=== PATIENT | female | born 1950 | race Caucasian/White ===

== ENCOUNTER 2017-10-23 01:37 | Emergency (ER) | payer MEDICARE, OTHER ==
[2017-10-23] MEDS ORDERED: Ketorolac Tromethamine 30 MG/ML VIAL ONE (02:02)
[2017-10-23] MEDS ORDERED: Cyclobenzaprine 10 MG TAB ONE (02:02)
[2017-10-23] MEDS ORDERED: Ondansetron ODT 4 MG TAB ONE (02:02)
== END 2017-10-23 02:35 | disposition home or self-care (01) ==
LOC: MADERS 01:37
DX: S76.012A Strain of muscle, fascia and tendon of left hip, initial encounter (principal); E78.5 Hyperlipidemia, unspecified; F17.210 Nicotine dependence, cigarettes, uncomplicated; I10 Essential (primary) hypertension; J44.9 Chronic obstructive pulmonary disease, unspecified; X58.XXXA Exposure to other specified factors, initial encounter
CPT/HCPCS: 96372; J1885; Q0162

== ENCOUNTER 2017-10-25 08:31 | Emergency (ER) | payer MEDICARE, OTHER ==
[2017-10-25] MEDS ORDERED: Naproxen 500 MG TAB ONE (09:21)
[2017-10-25] MEDS ORDERED: Diazepam 5 MG TAB ONE (09:21)
== END 2017-10-25 09:25 | disposition home or self-care (01) ==
LOC: MADERS 08:31
DX: M54.42 Lumbago with sciatica, left side (principal); E78.5 Hyperlipidemia, unspecified; I10 Essential (primary) hypertension; J44.9 Chronic obstructive pulmonary disease, unspecified; F17.210 Nicotine dependence, cigarettes, uncomplicated
CPT/HCPCS: 99283

== ENCOUNTER 2019-01-25 10:37 | Outpatient (CLI) | payer MEDICARE, OTHER ==
--- NOTE | 2019-01-25 13:01 | RAD ---
TWO VIEW CHEST: HISTORY: Hypoxia. History of smoking. COMPARISON: 07/22/2013 FINDINGS: The lungs appear clear. Vascular markings are within the normal range. Heart size is normal. [place] structures are unremarkable. IMPRESSION: Chest is unremarkable and unchanged. POS: [facility]
== END 2019-01-25 10:38 | disposition home or self-care (01) ==
LOC: MADRAD 10:37
PROVIDERS: ATTEND Obstetrics & Gynecology
DX: Z72.0 Tobacco use (principal)
CPT/HCPCS: 71046

== ENCOUNTER 2019-12-02 16:43 | Emergency (ER) | payer MEDICARE, OTHER ==
[~2019-12-02 16:43] MED LIST: Sodium Chloride 0.9% 100 ML BAG ONE
[2019-12-02] MEDS ORDERED: Amoxicillin/Potassium Clav 875 MG TAB ONE (17:07)
[2019-12-02] MEDS ORDERED: methylPREDNISolone Sod Succ/PF 125 MG/2 ML VIAL ONE (17:08)
[2019-12-02 17:14] LABS: #Basophils 0.1 thou/uL (0.0-0.2); #Lymphocytes 0.7 thou/uL (1.20-3.40); #Monocytes 0.8 thou/uL (0.11-0.59); #Neutrophils 16.3 thou/uL (1.40-6.50); %Basophils 0.4 % (0.0-1.0); %Lymphocytes 3.8 % (21.0-51.0); %Monocytes 4.3 % (0.0-10.0); %Neutrophils 91.4 % (42.0-75.0); Hemoglobin 15.8 g/dL (12.0-16.0); Mean Corpuscular HGB CONC 29.6 g/dL (32.0-36.0); Mean Corpuscular Hemoglobin 28.9 pg (27.0-31.0); Mean Corpuscular Volume 97.7 fL (78.0-98.0); Mean Platelet Volume 7.6 fL (7.4-10.4); Platelet Count 445 thou/uL (130-400); Red Blood Cell (RBC) Count 5.45 mill/uL (4.20-5.40); White Blood Cell (WBC) Count 17.9 thou/uL (4.8-10.8)
--- NOTE | 2019-12-02 17:18 | RAD ---
Exam: Chest one view HISTORY:Dyspnea Comparison: 01/25/2019 FINDINGS: Cardiac silhouette:Upper normal cardiac silhouette Aorta: Atherosclerosis Pulmonary vessels: Normal Costophrenic angles: Clear LUNGS: No masses or consolidation. Hyperinflation with chronic interstitial changes. Pneumothorax: None Osseous abnormalities: None IMPRESSION: No acute cardiopulmonary process. Atherosclerosis.
[2019-12-02] MEDS ORDERED: Ondansetron PF 4 MG/2 ML Vial ONE (17:19)
[2019-12-02 17:29] LABS: ALT (SGPT) 43 U/L (8-55); AST (SGOT) 22 U/L (5-34); Albumin 4.2 g/dL (3.4-4.8); Alkaline Phosphatase 65 U/L (40-110); Anion Gap 15 mmol/L (10-20); BUN (Urea Nitrogen) 14 mg/dL (9.8-20.1); Bilirubin, Total 0.3 mg/dL (0.2-1.2); Calc. Creatinine Clearance 0 mL/min (70-130); Calcium 9.1 mg/dL (7.8-10.44); Carbon Dioxide 35 mmol/L (23-31); Chloride 95 mmol/L (98-107); Estimated GFR-MDRD 73; Glucose 189 mg/dL (80-115); Potassium 4.2 mmol/L (3.5-5.1); Protein, Total 7.2 g/dL (6.0-8.3); Sodium 141 mmol/L (136-145)
[2019-12-02] MEDS ORDERED: cefTRIAXone\\ROCEPHIN 2 GM VIAL ONE (18:17)
[2019-12-02] MEDS ORDERED: Azithromycin 500 MG VIAL ONE (18:17)
[2019-12-02] MEDS ORDERED: Sodium Chloride 0.9% 2,000 ML ONE (18:17)
== END 2019-12-02 19:18 | disposition short-term general hospital (02) ==
LOC: MADERS 16:43
DX: A41.9 Sepsis, unspecified organism (principal); J44.1 Chronic obstructive pulmonary disease with (acute) exacerbation; E78.5 Hyperlipidemia, unspecified; E78.00 Pure hypercholesterolemia, unspecified; I10 Essential (primary) hypertension; F17.210 Nicotine dependence, cigarettes, uncomplicated; Z79.899 Other long term (current) drug therapy; Z79.51 Long term (current) use of inhaled steroids
CPT/HCPCS: 36415; 71045; 80053; 83605; 85025; 87040; 87804; 96365; 96375; J0456; J0696; J2405; J2930; J3490; J7050; J7620